=== PATIENT | female | born 1970 | race Caucasian/White ===

== ENCOUNTER 2021-01-08 20:15 | Emergency (ER) | payer OTHER ==
[~2021-01-08] VITALS: Ht 162.6 cm; Wt 81.6 kg
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
--- NOTE | 2021-01-08 20:41 | NUR ---
XRAY AT BEDSIDE
[2021-01-08] MEDS ORDERED: HYDROCODONE/APAP 5/325MG TABLET ONE (20:52)
[2021-01-08] MEDS ORDERED: ONDANSETRON 4 MG TAB.RAPDIS ONE (20:52)
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
[2021-01-08] MEDS: ONDANSETRON 4 MG TAB.RAPDIS SL ONE (21:03)
[2021-01-08] MEDS: HYDROCODONE/APAP 5/325MG TABLET PO ONE (21:03)
[2021-01-08] MEDS ORDERED: NAPR500T6 PO (21:45)
[2021-01-08] MEDS ORDERED: CYCL10TA9 PO (21:45)
[2021-01-08 22:18] VITALS: BP 145/87
--- NOTE | 2021-01-08 22:18 | NUR ---
Patient discharged to home in stable condition. Written and verbal after care instructions given. Patient verbalizes understanding of instruction.
--- NOTE | 2021-01-08 22:18 | NUR ---
Patient is picked up by , Jimmy.
== END 2021-01-08 22:19 | disposition home or self-care (01) ==
LOC: ER 20:23
DX: M54.50 Low back pain, unspecified (principal); R07.89 Other chest pain; M54.2 Cervicalgia; Z79.899 Other long term (current) drug therapy; V49.59XA Passenger injured in collision with other motor vehicles in traffic accident, initial encounter; Y93.89 Activity, other specified; Y92.413 State road as the place of occurrence of the external cause; Y99.8 Other external cause status
CPT/HCPCS: 71045; 72125; 72131; 99284; Q0162